=== PATIENT | male | born 1985 | race American Indian/Alaskan Native ===

== ENCOUNTER 2024-04-03 11:18 | Emergency (ER) | payer MEDICAID, OTHER, SELFPAY ==
--- NOTE | ~2024-04-03 | US_ITS ---
EXAMINATION: US ABDOMEN LIMITED CLINICAL INFORMATION: Right upper quadrant firmness per patient. COMPARISON: None available. TECHNIQUE: Real-time imaging of the right upper quadrant abdominal viscera. FINDINGS: PANCREAS: Normal. LIVER: Increased hepatic echogenicity suggesting hepatic steatosis. The liver is normal in size. The liver contour is normal. No focal hepatic lesion. There is no intrahepatic biliary duct dilatation seen. GALLBLADDER: Normal. The gallbladder is physiologically distended without evidence of stones, sludge, polyps, wall thickening or pericholecystic fluid. COMMON BILE DUCT: Normal in caliber measuring 0.4 cm in diameter. RIGHT KIDNEY: Right renal upper pole calculus measuring 9 mm. No hydronephrosis. No renal focal parenchymal lesions. The kidney measures 13.2 cm in maximum dimension. FREE FLUID: None. US/US abdomen limited IMPRESSION: 1. Increased hepatic echogenicity suggesting hepatic steatosis. 2. Right renal upper pole calculus measuring 9 mm without hydronephrosis.
[2024-04-03 11:22] VITALS: BP 142/91; PULSE 85; RESP 20; TEMP 37.2; O2SAT 98; BMI 33.2
--- NOTE | 2024-04-03 11:26 | ED_ITS ---
HPI - General Adult General Chief complaint: Abdominal Pain Stated complaint: Abd pain 2 days Time Seen by Provider: 04/03/24 13:00 Source: patient and RN notes reviewed Mode of arrival: ambulatory Limitations: no limitations History of Present Illness ED Provider: Sandra Trinh PA-C HPI narrative: This is a 38-year-old Stateless-speaking male, with a history of GERD, who presents emergency department with complaints of abdominal pain swelling. Patient states that about 4 days ago he developed left upper abdominal pain with abdominal distention which resolved after 1 day. He states that he no longer has the abdominal pain however noticed that he now has a lump in his umbilical region. Patient states that he has had no fevers, chills, abdominal pain, nausea, vomiting or diarrhea. He has been eating and drinking without difficulty. No changes in bowel habits. He is passing gas. Last bowel movement was this morning and normal. No urinary symptoms. No abdominal surgeries. No other complaints or concerns at this time. MD complaint: Abdominal lump Relieving factors: none Exacerbating factors: none Associated symptoms: denies other symptoms Treatments prior to arrival: none Related Data Allergies Allergy/AdvReac Type Severity Reaction Status Date / Time No Known Allergies Allergy Verified 04/03/24 11:27 Review of Systems 2 Review of Systems: Yes all other systems are reviewed and are negative Constitutional: Constitutional: Reports as per [facility] Past Medical History Attestation statement: The following information was validated with the patient. Social History Social History Advance Directives: No Do you have a plan to hurt others: No Plan Physical Exam ED Vital Signs: Vital Signs - 24 hr 04/03/24 11:22 04/03/24 14:27 Temperature 98.9 F 98.3 F Pulse Rate 85 79 Respiratory Rate 20 18 Blood Pressure 142/91 H 134/85 Pulse Oximetry 98 98 Oxygen Delivery Method Room Air Room Air BMI result Body Mass Index 33.2 Const General: cooperative, comfortable and no acute distress Orientation/consciousness: patient oriented x3 Limitations: no limitations HENMT Head: Yes normal to inspection, Yes normocephalic and Yes atraumatic Ears: hearing grossly normal bilaterally General nose exam: Normal external nose present Face and sinus: Yes normal facial exam Mouth: Normal oral and palatal mucosa present, oropharynx normal and moist mucous membranes Throat: Yes posterior oropharynx normal Eyes General: appearance normal, both eyes and all related structures Eyelids: Yes eyelids normal Conjunctivae: conjunctivae normal Sclerae: sclerae normal Pupils: Equal, round and reactive pupils present EOM: EOMs intact bilaterally Neck Neck: Yes normal visual inspection, Yes full ROM and Yes no lymphadenopathy Lymphatic: no lymphadenopathy noted Chest Chest palpation & inspection: normal inspection of the chest Resp Effort & Inspection: normal respiratory effort and able to speak in complete sentences Auscultation: clear to auscultation bilaterally, no crackles, no rales, no rhonchi and no wheezes Cardio Rate: regular rate Rhythm: regular rhythm Heart sounds: S1 normal heart sound present and S2 normal heart sound present GI Other: Abdomen is soft, nontender, nondistended. Just superior to the umbilicus, there is a piece size mobile, nontender indurated mass, subcutaneously, with no overlying skin changes, warmth, erythema. Unable to discern abdominal wall defect. Inspection: Yes normal to inspection Skin General skin exam: no rashes or lesions noted Trauma: no lacerations or abrasions Wounds: no wounds Neuro General: patient oriented x3 and moves all extremities Cranial nerves: Yes Equal, round and reactive pupils present Extrem General: Yes normal to inspection Right upper extremity: normal to inspection Left upper extremity: normal to inspection Right lower extremity: normal to inspection Left lower extremity: normal to inspection Course Course Course Narrative: This is a rapid medical exam performed by Annette Mae NP: Additional HPI, ROS, PE not included below will be deferred to primary provider. Patient is a 38-year-old male with history of GERD presenting with complaint of 2 days of upper abdominal pain and distention, bitter taste in mouth, states symptoms are not typical for his GERD. Complains of feeling a firm area to epigastric area. PE: abdomen soft and nontender, vital signs stable Plan: labs, U/S Reevaluation(s) Reevaluation #1: Ultrasound returns, revealing hepatic steatosis, as well as right renal upper pole calculus measuring 9 mm without hydro nephrosis. Discussed findings with patient. Given return precautions. Patient understands and agrees with plan. Patient stable for discharge. Time: 14:44 Medical Decision Making Medical Decision Making MDM Narrative: This is a 38-year-old male who presents emergency department with complaints of abdominal mass x 4 days. On arrival, blood pressure mildly elevated at 142/91. He is nontoxic-appearing and speaking full sentences. He is neurologically intact. Patient's abdomen is soft and nontender. He does have a small pea- sized mass noted just superior to his umbilicus. Differential diagnoses include hernia, mass, lipoma, abscess, incarcerated hernia-unlikely due to non tenderness and no overlying skin changes or warmth, GERD, gastritis, viral syndrome Plan: Labs, abdominal ultrasound Differential Diagnosis Differential Diagnoses: The differential diagnosis associated with the presentation includes See above Admission/Observation Consideration of admission/observation: Escalation of care including admission/observation considered Escalation of care including admission/observation considered however given workup today not warranted at this time. Lab Data MDM Lab Attestation statement: I reviewed the patient's lab results. No leukocytosis, stable H&H, electrolytes within normal limits. Normal liver enzymes, urine with trace leuk esterases, otherwise no other evidence of UTI. He has no urinary symptoms therefore will await urine culture. 04/03/24 11:52 04/03/24 11:52 Labs: Lab Results 04/03/24 04/03/24 Range/Units 11:52 13:20 WBC 6.5 (4.8-10.8) X10*3/uL RBC 4.95 (4.60-5.80) X10*6/uL Hgb 13.8 L (14.0-18.0) g/dl Hct 43.1 (42.0-52.0) % MCV 87.1 (80.0-98.0) fL MCH 27.9 (27.0-33.0) pg MCHC 32.0 (31.0-36.0) g/dl RDW 13.1 (11.0-16.0) % Plt Count 295 (160-400) X10*3/uL MPV 9.8 (9.4-12.4) fL Immature Gran % (Auto) 0.2 (0.0-0.4) % Neut % (Auto) 40.3 L (45-73) % Lymph % (Auto) 50.5 H (20-40) % [place] % (Auto) 7.7 (2-11) % Eos % (Auto) 0.8 (0-4) % Baso % (Auto) 0.5 (0-2) % Lymph # (Auto) 3.3 (1.2-4.9) X10*3/uL [place] # (Auto) 0.5 (0.1-1.2) X10*3/uL Eos # (Auto) 0.1 (0.0-0.4) X10*3/uL Baso # (Auto) 0.0 (0.0-0.2) X10*3/uL Abs Immat Gran (auto) 0.01 (0.00-0.03) X10*3/uL Absolute Neuts (auto) 2.6 (2.0-8.3) x10*3/uL Absolute Nucleated RBC 0.000 (0.0-0.012) X10*3/uL Nucleated RBC % (auto) 0.0 (0.0-0.2) /100WBC PT 12.0 (11.1-13.3) SEC INR 1.0 (0.9-1.1) Sodium 141 (135-145) mmol/L Potassium 4.1 (3.3-5.1) mmol/L Chloride 107 (96-108) mmol/L Carbon Dioxide 27 (22-29) mmol/L Anion Gap 11 L (12-20) BUN 13 (9-16) mg/dL Creatinine 0.85 (0.5-1.4) mg/dL Estim Creat Clear Calc 138.7 Estimated GFR > 60 Random Glucose 90 (60-115) mg/dL Calcium 10.0 (8.4-10.2) mg/dL Total Bilirubin 0.4 (0.0-1.0) mg/dL AST 22 (5-37) U/L ALT 34 (0-40) U/L Alkaline Phosphatase 67 (39-117) U/L Total Protein 8.0 (6.5-8.0) g/dL Albumin 4.8 (3.5-5.0) g/dL Urine Color Yellow Urine Appearance Clear Urine pH 7.5 (5.0-9.0) Ur Specific [place] 1.020 (1.005-1.025) Urine Protein Negative (Neg-Trace) mg/dL Urine Glucose (UA) Negative (Negative) mg/dL Urine Ketones Negative (Negative) mg/dL Urine Blood Negative (Negative) Urine Nitrite Negative (Negative) Ur Leukocyte Esterase Trace H (Negative) Urine RBC 0-2 (0-2) /HPF Urine WBC 0-5 (0-5) /HPF Ur Squamous Epith Cells 0-2 (0-2) /HPF Urine Bacteria None Seen (None Seen) Hyaline Casts 0-2 (0-2) /LPF Influenza Type A (PCR) NEGATIVE (Negative) Influenza Type B (PCR) NEGATIVE (Negative) RSV RNA Qual (PCR) NEGATIVE (Negative) SARS-CoV-2 RNA (RT-PCR) NEGATIVE (Negative) Radiology Impression Discussion of test interpretation with radiology: I have reviewed the radiologist's reading. Radiologist Impression: US/US abdomen limited IMPRESSION: 1. Increased hepatic echogenicity suggesting hepatic steatosis. 2. Right renal upper pole calculus measuring 9 mm without hydronephrosis. Discharge Plan Discharge Clinical Impression: Abdominal pain, Abdominal wall lump, Renal calculus, Hepatic steatosis Patient Disposition: Home, Self-Care Instructions: Kidney Stones (ED), Acute Abdominal Pain (ED), Ventral Hernia (ED) Additional Instructions: Your seen in the emergency department due to abdominal pain/lump. Your ultrasound shows a kidney stone on the right however this is within your kidney therefore no emergent intervention is required. You may follow-up with urologist as needed. You also have evidence of fatty liver. Please follow-up with your primary care physician regarding this visit. Your blood work was normal. Your urine does not appear to be infected. We will call you if your urine culture becomes positive. If any new or worsening symptoms occur including but not limited to severe abdominal pain, fevers, chest pain or shortness for breath, please return for re-evaluation. Referrals: [facility] [Provider Group] Center,[facility] [Physician] - Print Language: Stateless
[2024-04-03 11:56] LABS: MANUAL DIFF FLAG NO
[2024-04-03 12:01] LABS: Basophils Percent Auto 0.5 % (0-2); Eosinophils Absolute Auto 0.1 X10*3/uL (0.0-0.4); Eosinophils Percent Auto 0.8 % (0-4); Hematocrit 43.1 % (42.0-52.0); Hemoglobin 13.8 g/dl (14.0-18.0); Imm Gran Abs Auto 0.01 X10*3/uL (0.00-0.03); Imm Gran Pct Auto 0.2 % (0.0-0.4); Lymphocytes Absolute Auto 3.3 X10*3/uL (1.2-4.9); Lymphocytes Percent Auto 50.5 % (20-40); Mean Corpuscular Hemoglobin 27.9 pg (27.0-33.0); Mean Corpuscular Volume 87.1 fL (80.0-98.0); Mean Platelet Volume 9.8 fL (9.4-12.4); Monocytes Absolute Auto 0.5 X10*3/uL (0.1-1.2); Monocytes Percent Auto 7.7 % (2-11); Neutrophils Absolute Auto 2.6 x10*3/uL (2.0-8.3); Neutrophils Percent Auto 40.3 % (45-73); Platelet Count 295 X10*3/uL (160-400); Red Blood Count 4.95 X10*6/uL (4.60-5.80); Red Cell Distribution Width 13.1 % (11.0-16.0); White Blood Count 6.5 X10*3/uL (4.8-10.8)
[2024-04-03 12:03] LABS: Appearance Urine Clear; Color Urine Yellow; Glucose Urine UA Negative (Negative); Leukocyte Esterase Urine Trace (Negative); Nitrite Urine Negative (Negative); PH 7.5 (5.0-9.0); UMIC TRIGGER UACC YES; Urine Blood Negative (Negative); Urine Ketones Negative (Negative); Urine Protein Negative (Neg-Trace)
[2024-04-03 12:06] LABS: Bacteria Urine None Seen (None Seen); Hyaline Casts Urine 0-2 /LPF (0-2); RBC Urine 0-2 /HPF (0-2); Squamous Epithelial Cell Urine 0-2 /HPF (0-2); WBC Urine 0-5 /HPF (0-5)
[2024-04-03 12:11] LABS: Alanine Aminotransferase 34 U/L (0-40); Albumin Level 4.8 g/dL (3.5-5.0); Alkaline Phosphatase 67 U/L (39-117); Anion Gap 11 (12-20); Aspartate Amino Transferase 22 U/L (5-37); Bilirubin Total 0.4 mg/dL (0.0-1.0); Blood Urea Nitrogen 13 mg/dL (9-16); Carbon Dioxide 27 mmol/L (22-29); Chloride 107 mmol/L (96-108); Creatinine Clr Calc Pharmacy 138.7; Estimated Glomerular Filt Rate > 60; Glucose Random 90 mg/dL (60-115); Potassium 4.1 mmol/L (3.3-5.1); Sodium 141 mmol/L (135-145)
[2024-04-03 14:00] LABS: Influenza A PCR NEGATIVE (Negative); Influenza B PCR NEGATIVE (Negative); Resp Syncy Virus RNA Qual PCR NEGATIVE (Negative); SARS COV2 PCR INHOUSE NEGATIVE (Negative)
[2024-04-03 14:27] VITALS: BP 134/85; PULSE 79; RESP 18; TEMP 36.8; O2SAT 98
[2024-04-03 14:50] VITALS: BP 134/85; PULSE 79; RESP 18; TEMP 36.8; O2SAT 98
== END 2024-04-03 14:51 | disposition home or self-care (01) ==
PROVIDERS: Physician Assistant Medical; Registered Nurse Emergency; Emergency Provider Emergency Medicine
DX: N20.0 Calculus of kidney (principal); K76.0 Fatty (change of) liver, not elsewhere classified; R10.9 Unspecified abdominal pain; Z79.899 Other long term (current) drug therapy; Z03.818 Encounter for observation for suspected exposure to other biological agents ruled out
CPT/HCPCS: 0241U; 36415; 76705; 80053; 81001; 81003; 85025; 85610; 99283; 99284

== ENCOUNTER 2024-05-15 12:23 | Emergency (ER) | payer OTHER, SELFPAY ==
--- NOTE | 2024-05-15 12:28 | ED_ITS ---
HPI - Skin/Abscess/Foreign Bdy General Chief complaint: Skin/Abscess/Foreign Body Stated complaint: Fish hook stuck in side Time Seen by Provider: 05/15/24 12:58 Source: patient and hourly sign language interpreter Mode of arrival: ambulatory Limitations: language barrier History of Present Illness ED Provider: yvonne HPI narrative: Patient is a 38-year-old [place]an-speaking male presenting to the emergency department with complaint of fish hook stuck in his left upper back. He states that 1 of his children was attempting to cast when the fish hook became accidentally lodged in his back. States he would have removed it himself but he was unable to reach the area. Unsure last tetanus vaccine, states he had multiple vaccines when he came here from the [place] in June of 2023 but is unsure if Tdap was included. complaint: foreign body Onset (ago): minute(s) Tetanus up to date: unsure Location: back Associated symptoms: denies other symptoms Treatments prior to arrival: none Related Data Allergies Allergy/AdvReac Type Severity Reaction Status Date / Time No Known Allergies Allergy Verified 05/15/24 12:33 Review of Systems 2 Review of Systems: As per HPI. Yes all other systems are reviewed and are negative Constitutional: Constitutional: Reports as per HPI [facility] Social History Social History Advance Directives: No Advance Directives Information Provided: Yes Physical Exam 2 Vital Signs: Vital Signs: Last Vital Signs Temp 98.6 F 05/15/24 12:32 Pulse 85 05/15/24 12:32 Resp 16 05/15/24 12:32 BP 160/100 H 05/15/24 12:32 Pulse Ox 99 05/15/24 12:32 O2 Del Method Room Air 05/15/24 12:32 BMI result Body Mass Index 38.2 Vital signs have been reviewed and appear to be correct. Blood pressure elevated. Heart rate normal. Respiratory rate normal. Temperature normal. Oxygen saturation normal. Const: General: cooperative, healthy appearing and no acute distress O rientation/consciousness: oriented to person, oriented to place, oriented to time and patient oriented x3 Limitations: no limitations HEENT: Head: Yes normocephalic and Yes atraumatic Ears: external ears normal General nose exam: Normal external nose present Face and sinus: Yes face symmetric Mouth: oropharynx normal and moist mucous membranes Throat: Yes uvula midline Eyes: Pupils: Equal, round and reactive pupils present Neck: Neck: Yes normal visual inspection and Yes supple Resp: Effort & Inspection: normal respiratory effort and able to speak in complete sentences Auscultation: clear to auscultation bilaterally Cardio: Rate: regular rate Rhythm: regular rhythm Heart sounds: S1 normal heart sound present and S2 normal heart sound present GI: Palpation (GI): Soft to palpation and nontender Auscultation: n ormoactive bowel sounds : General: Yes no CVA tenderness Back/Spine/Pelvis: Back: no CVA tenderness Skin: General skin exam: elasticity normal and turgor normal Trauma: p uncture (fish hook left upper back, superficial) Full body images: 1. fish hook embedded superficially left upper back Neuro: General: oriented to person, oriented to place, oriented to time, patient oriented x3, moves all extremities, no focal motor deficits and CN's II- XI intact bilaterally Cranial nerves: Yes Equal, round and reactive pupils present Cognition (Neuro): normal cognition Extrem: General: Yes full ROM, Yes no pedal edema and Yes no calf tenderness Psych: Mental Status: mental status grossly normal Affect: normal affect Thought process: Normal thought process present Course Course Course Narrative: This is a Rapid Medical Examination (RME) performed by Nile Gamboa PA-C in triage. Full HPI, ROS, assessment and treatment plan per primary provider in the Main ED. 38 yo [place] speaking male here for eval of fish hook stuck in skin sustained [employer] [place] reports tetanus was updated in june 2023. + single pronged hook embedded into skin of lateral/ posterior chest. Plan: FB removal. Medications Administered Discontinued Medications Generic Name Dose Route Start Last Admin Trade Name Freq PRN Reason Stop Dose Admin Diphtheria/Tetanus/Acell Pertussis 0.5 ml 05/15/24 13:09 05/15/24 13:14 Diphth,Pertus(Acell),Tet Adult 0.5 Ml Syringe IM 05/15/24 13:10 0.5 ml .ONCE ONE Administration Lidocaine HCl 5 ml 05/15/24 13:05 05/15/24 13:14 Lidocaine Hcl 1 % Mpf 5 Ml Vial INFILTRATI 05/15/24 13:06 5 ml ONCE ONE Administration Medical Decision Making Medical Decision Making [facility] Narrative: Patient is a 38-year-old [place]an-speaking male presenting to the emergency department with complaint of fish hook stuck in his left upper back. On exam patient is awake, A+Ox3, BP elevated, VS otherwsie WNL, afebrile, normal neurological exam without focal deficits, physical exam findings as above. Given reported symptoms and physical exam findings, initial differential includes foreign body left upper back. Tdap updated. Hook removed as per procedure note without complications, patient tolerated well. Advised patient to assess area daily for signs of infection, return if these occur. Follow up with PCP. Patient verbalized understanding of and agreement with plan. In- person deaf interpreter used at bedside. Differential Diagnosis Differential Diagnoses: The differential diagnosis associated with the presentation includes as per [facility] External Record Review External record reviewed: Inpatient record, Office record and Outpatient record Prescription Management I considered prescription management with: Other Procedures Foreign Body Removal Time Out Performed: yes Site: left Description of foreign body: fish hook Sedation/Analgesia: other (lidocaine) Technique: manual removal Confirmed by:: direct visualization Complications: none Post-procedure exam: awake, alert, normal BP, normal HR and normal O2 sat Neurovascular: normal capillary fill and distal light touch sensation intact Discharge Plan Discharge Clinical Impression: Fish hook in back Patient Disposition: Home, Self-Care Instructions: Puncture Wound (DC) Additional Instructions: You were evaluated in the emergency department today for a fish hook stuck in your back. The fishhook was removed in the emergency department. Your tetanus vaccine was updated at today's visit. Please assess the area daily for any new redness, swelling or thick yellow drainage and return if this occurs. Follow-up with your primary care provider. Print Language: B[place]
[2024-05-15 12:32] VITALS: BP 160/100; PULSE 85; RESP 16; TEMP 37; O2SAT 99; BMI 38.2
[2024-05-15] MEDS: Diphth,Pertus(ACell),Tet Adult 0.5 ML SYRINGE IM (13:14)
[2024-05-15] MEDS: Lidocaine HCl 1 % MPF 5 ML VIAL INFILTRATI (13:14)
--- NOTE | 2024-05-15 13:17 | PC.NURSE ---
pt medicated per order
[2024-05-15 13:32] VITALS: BP 126/79; PULSE 76; RESP 16; TEMP 36.6; O2SAT 95
== END 2024-05-15 13:32 | disposition home or self-care (01) ==
PROVIDERS: Emergency Provider Emergency Medicine
DX: S21.242A Puncture wound with foreign body of left back wall of thorax without penetration into thoracic cavity, initial encounter (principal); W45.8XXA Other foreign body or object entering through skin, initial encounter; Y93.89 Activity, other specified; Y92.9 Unspecified place or not applicable; Y99.9 Unspecified external cause status; Z23 Encounter for immunization
CPT/HCPCS: 90471; 90715; 99282; 99284

== ENCOUNTER 2024-05-29 10:36 | Outpatient (AMB) | payer OTHER, SELFPAY ==
--- NOTE | 2024-05-29 11:20 | MHC.OFFVIS ---
Intake Visit Reasons: kidney stone Intake Note: New Patient presents for initial visit for Kidney Stone Urology Medications: none Blood Thinner: none Insurance Appraiser Required: Yes Insurance Appraiser Name: [id number] Accompanied by: children Allergies No Known Allergies Allergy (Verified 05/29/24 13:22) Medication List - Last Reconciled 05/29/24 by NIKKI Snyder No Known Home Meds HPI Comments Details: Caden is a very pleasant 38-year-old Beninese-speaking male patient who was accompanied by his 4 children at today's office visit. He presents to the office today as a new patient for nephrolithiasis. In discussion with the patient today reports having seeked emergency room care approximately 2 months ago for abdominal pain and swelling he had been experiencing at which time a abdominal ultrasound was ordered and performed and patient was noted to have nephrolithiasis therefore urology referral was made for further assessment evaluation. Right kidney noted to have a nonobstructing 9 mm right upper pole calculus. No hydronephrosis or renal lesions noted. When asked he reports a previous history of nephrolithiasis however never requiring surgical intervention. He currently denies any bothersome urinary issues or concerns. He reports pain he had been experiencing has since subsided. Discussed further intervention to include surveillance monitoring verses ESWL. He denies urinary urgency, urinary frequency, incontinence, nocturia, hematuria, dysuria, foul smelling urine, changes to urinary stream, flank pain, fever, and or chills. He is happy with her current voiding parameters. In office urinalysis results reviewed with the patient today. Discussed at length potential causes of nephrolithiasis as well as further workup to include labs as well as 24 hour urine collection. He otherwise offers no other issues or concerns at this time. Review of Systems Const All systems reviewed & are unremarkable except as noted in HPI and below Physical Exam Const General: cooperative, healthy appearing, comfortable, no acute distress, well developed, alert and awake Nutritional Appearance: overweight Orientation/consciousness: patient oriented x3 Limitations: no limitations HEENT Head: Yes normal to inspection, Yes normocephalic and Yes atraumatic Ears: hearing grossly normal bilaterally Eyes General: appearance normal, both eyes and all related structures Neck Neck: Yes normal visual inspection and Yes trachea midline Chest Chest palpation & inspection: normal inspection of the chest Resp Effort & Inspection: normal respiratory effort and able to speak in complete sentences Cardio Rate: regular rate GI Inspection: Yes normal to inspection General: Yes no CVA tenderness Back/Spine/Pelvis Back: no CVA tenderness Skin General skin exam: no rashes or lesions noted Neuro General: patient oriented x3 Extrem General: Yes normal to inspection Psych Appearance: grossly normal and well kempt Mental Status: mental status grossly normal Speech and movement: Normal speech and movement present and Clear speech present Affect: normal affect Attitude: cooperative Thought process: Normal thought process present Thought content: Normal thought content present Insight: Fair insight present (Psych) Judgement: Fair judgement present (Psych) Results AMB Urinalysis, Automated UA Leukoctes 0 Gwen/uL Last Edit by INTERNET BUSINESS TRADER on 05/29/24 11:35 UA Nitrite Last Edit by INTERNET BUSINESS TRADER on 05/29/24 11:35 UA Urobilinogen 0.2 mg/dL Last Edit by INTERNET BUSINESS TRADER on 05/29/24 11:35 UA Protein 0 mg/dL Last Edit by INTERNET BUSINESS TRADER on 05/29/24 11:35 UA pH 7.0 Last Edit by INTERNET BUSINESS TRADER on 05/29/24 11:35 UA Blood 0 Flynn/uL Last Edit by INTERNET BUSINESS TRADER on 05/29/24 11:35 UA Specific Sidney 1.015 Last Edit by INTERNET BUSINESS TRADER on 05/29/24 11:35 UA Ketone Last Edit by INTERNET BUSINESS TRADER on 05/29/24 11:35 UA Bilirubin 0 mg/dL Last Edit by INTERNET BUSINESS TRADER on 05/29/24 11:35 UA Glucose 0 mg/dL Last Edit by INTERNET BUSINESS TRADER on 05/29/24 11:35 Results Reviewed Results Reviewed: Laboratory Last Values Urine pH (Auto) 7.0 05/29/24 11:34 Specific Sidney (Auto) 1.015 05/29/24 11:34 Urine Protein (Auto) 0 mg/dL 05/29/24 11:34 Glucose (UA)(Auto) 0 mg/dL 05/29/24 11:34 Urine Blood (Auto) 0 Flynn/uL 05/29/24 11:34 Urine Bilirubin (Auto) 0 mg/dL 05/29/24 11:34 Urine Urobilinogen (Auto) 0.2 mg/dL 05/29/24 11:34 Leukocyte Esterase (Auto) 0 Gwen/uL 05/29/24 11:34 Date of Service: 04/03/24 EXAMINATION: US ABDOMEN LIMITED CLINICAL INFORMATION: Right upper quadrant firmness per patient. COMPARISON: None available. TECHNIQUE: Real-time imaging of the right upper quadrant abdominal viscera. FINDINGS: PANCREAS: Normal. LIVER: Increased hepatic echogenicity suggesting hepatic steatosis. The liver is normal in size. The liver contour is normal. No focal hepatic lesion. There is no intrahepatic biliary duct dilatation seen. GALLBLADDER: Normal. The gallbladder is physiologically distended without evidence of stones, sludge, polyps, wall thickening or pericholecystic fluid. COMMON BILE DUCT: Normal in caliber measuring 0.4 cm in diameter. RIGHT KIDNEY: Right renal upper pole calculus measuring 9 mm. No hydronephrosis. No renal focal parenchymal lesions. The kidney measures 13.2 cm in maximum dimension. FREE FLUID: None. IMPRESSION: 1. Increased hepatic echogenicity suggesting hepatic steatosis. 2. Right renal upper pole calculus measuring 9 mm without hydronephrosis. Assessment & Plan Assessment & Plan (1) Renal calculus: Code(s): N20.0 - Calculus of kidney Category: Medical Plan In office urinalysis results reviewed with the patient today; as noted above. Discussed further treatment options of nephrolithiasis to include surveillance monitoring verses ESWL; risks and benefits of these interventions were discussed at length Discussed adding 1 oz of lemon juice to water daily. Discussed, educated, and stressed the importance of hydration in relation to nephrolithiasis as well as overall health and well-being. Patient currently denies any bothersome urinary issues or concerns. Patient would like to continue with surveillance monitoring at this time. Will obtain KUB in 6 months. Follow-up in 6 months with imaging to be completed prior; or sooner with any issues, concerns, and or questions. Orders: Orders AMB Urinalysis Automated Today Z13.9 - Encounter for screening, unspecified XR KUB 6 Months N20.0 - Calculus of kidney Patient Instructions: The patient had an opportunity to ask questions regarding the treatment plan. All questions were answered. Physical exam, labs, and imaging were discussed and reviewed in detail. As well as risks, benefits, and discussion of treatment choices. No major barriers to understanding were identified. The patient expressed understanding and agreement with the above treatment plan. The patient was made aware they should contact our office by phone for worsening of their current condition, the appearance of new symptoms, or with any questions or concerns. Compliance is encouraged with any medications and follow up testing that is ordered. It is a privilege to be allowed the opportunity to participate in? your urological care.? Again, if you have any questions or concerns If you have any questions or concerns please do not hesitate to contact me. The office is [phone]. This note is constructed using voice recognition software. While every effort has been made to ensure accuracy clinical medical transcriptionist errors may have been included. Yours sincerely, NIKKI Snyder Coding Level of Care Code New Pt Level 4 (93642) Diagnoses Renal calculus N20.0 Time Spent (min) 35
== END 2024-05-29 11:55 | disposition home or self-care (01) ==
PROVIDERS: Visit Provider Nurse Practitioner Family
DX: Z13.9 Encounter for screening, unspecified (principal); N20.0 Calculus of kidney
CPT/HCPCS: 99204

== ENCOUNTER → 2024-05-29 10:36 | Outpatient (BNVA) | payer OTHER, SELFPAY | PROVIDERS: Visit Provider Nurse Practitioner Family | DX: N20.0 Calculus of kidney (principal) | CPT/HCPCS: 81003; 99202 ==

== ENCOUNTER 2025-03-01 08:47 | Outpatient (REF) | payer OTHER, SELFPAY ==
--- OUTSIDE RECORDS SUMMARY | 2025-03-01 09:07 | XMS_ITS | Clinical Summary ---
Author Organization [facility] Address [address] [place] [address] Care Team Providers Care Cone Examiner Name Role Phone Poncho Fabian MD Primary Care Prov ider Allergies No known active allergies Medications No known medications Active Problems Problem Noted Date Diagnosed Date Encounter for medical examination to establish c are 02/27/2025 Assessment & Plan (02/27/2025 10:56 AM EDT): Last pcp visit >1 ER: 05/2024 due to skin trauma Hospitalization: - Pmhx: kidney stones, left knee pain Pshx: - All:- Meds: b complex, tylenol PRN Class 2 obesity due to exces s calories without serious comorbidity with body mass index (BMI) of 36.0 to 36.9 in adult 02/27/2025 Encounters Date Type Department Care Team Description 02/27/2025 10:45 AM EDT Office Visit [facility] [address] [place] [address] Poncho Fabian MD Screening-pulmonary TB (Primary Dx); Class 2 obesity due to excess calories without serious comorbidity with body mass index (BMI) of 36.0 to 36.9 in adult; Encounter for medical examination to establish care 02/27/2025 Travel 02/19/2025 Patient Outreach [facility] [address] [place] [address] Brian Obregon MD Pre-visit Planning (Pre visit planning LVM ) from Last 3 Months Immunizations Immunization Administration Dates Next Due Hep B, adult 06/02/2023 MMR 06/02/2023 Varicella 06/02/2023 Family History Medical History Relation Name Comments No Known Problems Father No Known Problems Mother Cancer Neg Hx Relation Name Status Comments Father Mother Social History Tobacco Use Types Packs/Day Years Used Date Smoking Tobacco: Never Smokeless Tobacco: Never Tobacco Cessation:Counseling Given: Not Answered Alcohol Use Standard Drinks/Week Comments Yes 0 (1 standard drink = 0.6 oz pur e alcohol) beer socially Depression Answer Date Recorded Patient Health Questionnaire-9 Score 0 02/27/2025 Patient Health Questionnaire-9 Score 0 02/27/2025 Last PHQ-9: Questionnaire Data Not on file 0 02/27/2025 Housing Stability Answer Date Recorded What is your housing situation today? I have lewis moreno 02/27/[address] you li ve. Do you have problems with any of the following? None of the above 02/27/2025 Food Insecurity Answer Date Recorded Within the past 12 months, y ou worried that your food would run out before you got money to buy more: Never True 02/27/2025 Within the past 12 months,th e food you bought just didn't last and you didn't have enough money to get more: Never True Transportation Answer Date Recorded In the past 12 months, has l ack of transportation kept you from medical appts, meetings, work or from getting things needed for daily living? No 02/27/2025 Utilities Answer Date Recorded In the past 12 months, has t he electric, gas, oil or water company threatened to shut off services in your home? No 02/27/2025 Depression Answer Date Recorded Patient Health Questionnaire-2 Score 0 02/27/2025 Internet Access Answer Date Recorded Internet Access Q1 Yes 02/27/2025 Internet Access Q2 Not on file 02/27/2025 Sex and Gender Information Value Date Recorded Sex Assigned at Male 07/25/2024 12:45 PM EDT Legal Sex Male 12:44 PM EDT Gender Identity Male 07/25/2024 12:45 PM EDT Sexual Orientation Straight 02/25/2025 3: 39 PM EDT Last Filed Vital Signs Vital Sign Reading Time Taken Comments Blood Pressure 133/80 02/27/2025 10:35 AM EDT Pulse 88 02/27/2025 10:35 AM EDT Temperature 37.1 ??C (98.7 ??F) 02/27/2025 10:35 AM E DT Respiratory Rate 20 02/27/2025 10:35 AM EDT Oxygen Saturation - - Inhaled Oxygen Concentration - - Weight 113 kg (250 lb) 02/27/2025 10:35 AM EDT Height 175.3 cm (5' 9 ) 02/27/2025 10:35 AM EDT Body Mass Index 36.92 02/27/2025 10:35 AM EDT Plan of Treatment Health Maintenance Due Date Last Done Comments HIV Screening 1985 Lipid Panel 1985 Disability Screening 1985 Family Planning (PISQ) 2000 Hepatitis C Screening 2003 DTaP/Tdap/Td Vaccines (1 - Tdap) 2004 Hepatitis B Vaccines (2 of 3 - 19+ 3-dose series) 06/30/2023 06/02/2023 COVID-19 Vaccine (1 - 2023-2 5 season) 2024 Influenza Vaccine (#1) 2024 Alcohol/Substance Use Screening 02/27/2026 02/27/2025 Depression Screening 02/27/2026 02/27/2025, 02/27/2025 SDOH Screening 02/27/2026 02/27/2025 Tobacco Screening 02/27/2026 02/27/2025 Zoster Vaccines (1 of 2) 2035 RSV Patients and Patients Aged 60 years or older (1 - 1-dose 75+ series) 2060 HIB Vaccines Aged Out No longer eligi ble based on patient's age to complete this topic HPV Vaccines Aged Out No longer eligi ble based on patient's age to complete this topic Hepatitis A Vaccines Aged Out No long er eligible based on patient's age to complete this topic IPV Vaccines Aged Out No longer eligi ble based on patient's age to complete this topic Meningococcal B Vaccine Aged Out No l onger eligible based on patient's age to complete this topic Meningococcal Vaccine Aged Out No festus annelise eligible based on patient's age to complete this topic Pneumococcal Vaccine: Pediatrics (0 to 5 Years) and At-Risk Patients (6 to 49) Years) Aged Out No longer eligible b ased on patient's age to complete this topic RSV under 20 months Aged Out No longe r eligible based on patient's age to complete this topic Rotavirus Vaccines Aged Out No longer eligible based on patient's age to complete this topic [place] [address] [address] [place] [address] LIMITED HSN FULL Care Teams Cone Examiner Relationship Specialty Start Date End Date Poncho Fabian MD [address] [place] [id number] PCP - General Internal Medicine 02/27/25
[2025-03-01 14:20] LABS: MANUAL DIFF FLAG NO
[2025-03-01 14:27] LABS: Basophils Percent Auto 0.8 % (0-2); Eosinophils Absolute Auto 0.1 X10*3/uL (0.0-0.4); Hemoglobin 13.9 g/dl (14.0-18.0); Imm Gran Abs Auto 0.01 X10*3/uL (0.00-0.03); Imm Gran Pct Auto 0.2 % (0.0-0.4); Lymphocytes Absolute Auto 2.5 X10*3/uL (1.2-4.9); Mean Corpuscular HGB Conc 31.6 g/dl (31.0-36.0); Mean Corpuscular Hemoglobin 27.5 pg (27.0-33.0); Mean Corpuscular Volume 87.1 fL (80.0-98.0); Mean Platelet Volume 10.8 fL (9.4-12.4); Monocytes Absolute Auto 0.3 X10*3/uL (0.1-1.2); Monocytes Percent Auto 6.4 % (2-11); Neutrophils Absolute Auto 2.1 x10*3/uL (2.0-8.3); Neutrophils Percent Auto 42.6 % (45-73); Platelet Count 244 X10*3/uL (160-400); Red Blood Count 5.05 X10*6/uL (4.60-5.80); Red Cell Distribution Width 13.6 % (11.0-16.0)
[2025-03-01 14:35] LABS: Estimated Average Glucose 114 mg/dL; Hemoglobin A1c % 5.6 % (<6.0); Total Hemoglobin (HGBA1C) 3688.2683 umol/L
[2025-03-01 15:00] LABS: Alanine Aminotransferase 57 U/L (0-40); Albumin Level 4.8 g/dL (3.5-5.0); Alkaline Phosphatase 62 U/L (39-117); Anion Gap 11 (12-20); Aspartate Amino Transferase 38 U/L (5-37); Bilirubin Total 0.5 mg/dL (0.0-1.0); Blood Urea Nitrogen 13 mg/dL (9-16); Calcium 9.7 mg/dL (8.4-10.2); Carbon Dioxide 27 mmol/L (22-29); Chloride 109 mmol/L (96-108); Cholesterol 197 mg/dL (<200); Estimated Glomerular Filt Rate > 60; Glucose Random 84 mg/dL (60-115); HDL Cholesterol 38 mg/dL (>40); LDL Cholesterol Calculated 131 mg/dL (<100); Potassium 3.9 mmol/L (3.3-5.1); Sodium 143 mmol/L (135-145); Total Protein 7.4 g/dL (6.5-8.0); Triglycerides 142 mg/dL (<150)
[2025-03-04 08:24] LABS: HIV AB/AG Nonreactive (Nonreactive); HIV Num 1 0.05 S/CO (0.00-0.99); ~HepC Num1 0.06 S/CO (0.00-0.79); ~Hepatitis C Antibody Nonreactive (Nonreactive)
== END 2025-03-01 08:48 | disposition home or self-care (01) ==
LOC: HO.CHCLDS 08:47
PROVIDERS: Visit Provider Internal Medicine
DX: Z00.00 Encounter for general adult medical examination without abnormal findings (principal); E66.812 Obesity, class 2; E66.09 Other obesity due to excess calories; Z68.36 Body mass index [BMI] 36.0-36.9, adult
CPT/HCPCS: 36415; 80053; 80061; 83036; 84443; 85025; 86803; 87389

== ENCOUNTER 2025-05-21 07:42 | Outpatient (REF) | payer OTHER, SELFPAY ==
--- NOTE | ~2025-05-21 | US_ITS ---
CLINICAL HISTORY: US LIVER, TRANSAMINITIS US abdomen complete Comparison: US/SR - US ABDOMEN LIMITED - 04/03/24 12:21 EDT Findings: The visualized pancreas head is normal. The visualized aorta and inferior vena cava are normal caliber. The liver is enlarged, right lobe length is 18.1 cm. Moderately increased echogenicity of the liver parenchyma. No discrete lesion is visualized in the imaged liver. No intrahepatic bile duct dilatation. The common duct is 2 mm in diameter. The gallbladder is normal. Negative sonographic Kauffman sign. The main portal vein is patent with antegrade flow. The right kidney is normal, 12.1 cm in length. The left kidney is normal, 10.0 cm in length. The spleen is normal, 11.3 cm in length. No free fluid in the abdomen. Impression: Hepatomegaly with steatosis. This document has been electronically signed by: Naya Esqueda MD on 05/21/2025 11:23:39
--- NOTE | ~2025-05-21 | XR_ITS ---
EXAMINATION: XR ABDOMEN 1 VIEW (KUB) HISTORY: N20.0 - Calculus of kidney COMPARISON: There are no prior studies available for comparison. FINDINGS: Two supine views of the chest are submitted. The bowel gas pattern is unremarkable, without evidence of mechanical obstruction. A 2 mm calcification is seen overlying the right renal shadow. There are phleboliths in the pelvis. There are no abnormal soft tissue masses. The bones are intact. XR/XR KUB IMPRESSION: 2 mm calcification overlying the upper pole of the right renal shadow. Electronically signed by: Daniel Bautista MD 05/21/2025 08:45 AM EDT
--- OUTSIDE RECORDS SUMMARY | 2025-05-21 07:46 | XMS_ITS | Clinical Summary ---
Author Organization [employer] Address [address] [facility] [address] [place] [address] Care Team Providers Care Motor Analyst Name Role Phone Poncho Fabian MD Primary [...] Encounters Date Type Department Care Team Description 03/22/2025 Results Follow-Up [facility] [address] [place] [address] Poncho Fabian MD CBC auto differential, Comprehensive Metabolic Panel, Hemoglobin A1c, Additional followed-up results: 4 02/27/2025 10:45 AM EDT Office Visit [facility] [address] [place] [address] Poncho Fabian MD Screening-pulmonary TB (Primary Dx); Class 2 obesity due to excess calories without serious comorbidity with body mass index (BMI) of 36.0 to 36.9 in adult; Encounter for medical examination to establish care 02/27/2025 Travel 02/19/2025 Patient Outreach [facility] [address], [place] [phone] Brian Obregon MD Pre-visit Planning (Pre visit [...] 88 02/27/2025 10:35 AM EDT Temperature 37.1 C (98.7 F) 02/27/2025 10:35 AM EDT Respiratory Rate 20 02/27/2025 10:35 AM EDT Oxygen Saturation - - Inhaled Oxygen Concentration - - Weight 113 kg (250 lb) 02/27/2025 10:35 AM EDT Height 175.3 cm (5' 9 ) 02/27/2025 10:35 AM EDT Body Mass Index 36.92 02/27/2025 10:35 AM EDT Plan of Treatment Health Maintenance Due Date Last Done Comments Disability Screening 1985 Family Planning (PISQ) 2000 HPV Vaccines (1 - Male 3-dos e series) 2000 DTaP/Tdap/Td Vaccines (1 - Tdap) 2004 Hepatitis B Vaccines (2 of 3 - 19+ 3-dose series) 06/30/2023 06/02/2023 COVID-19 Vaccine (1 - 2023-2 5 season) 2024 Influenza Vaccine (#1) 2025 Alcohol/Substance Use Screening 02/27/2026 02/27/2025 Depression Screening 02/27/2026 02/27/2025, 02/27/2025 SDOH Screening 02/27/2026 02/27/2025 Tobacco Screening 02/27/2026 02/27/2025 Lipid Panel 03/01/2030 03/01/2025 Zoster Vaccines (1 of 2) 2035 RSV Patients and Patients Aged 60 years or older (1 - 1-dose 75+ series) 2060 HIV Screening Completed 03/01/2025 Hepatitis C Screening Completed 03/01/2025 HIB Vaccines Aged Out No longer eligi [...] Years) and At-Risk Patients (6 to 49) Years Aged Out No longer eligible b ased on patient's age to complete this topic RSV under 20 months Aged Out No longe r eligible based on patient's age to complete this topic Rotavirus Vaccines Aged Out No longer eligible based on patient's age to complete this topic Procedures Procedure Name Priority Date/Time Associated Diagnosis Comments HEPATITIS C AB W/REFL TO HCV RNA, QN, PCR Routine 03/01/2025 12:00 AM EDT Encounter for medical examination to establish care HIV 1/2 ANTIGEN/ANTIBODY, FOURTH GENERATION W/RFL Routine 03/01/2025 12:00 AM EDT Encounter for medical examination to establish care TSH W/REFLEX TO FT4 Routine 03/01/2025 1 2:00 AM EDT Class 2 obesity due to excess calories without serious comorbidity with body mass index (BMI) of 36.0 to 36.9 in adult LIPID PANEL, STANDARD Routine 03/01/2025 12:00 AM EDT Class 2 obesity due to excess calories without serious comorbidity with body mass index (BMI) of 36.0 to 36.9 in adult HEMOGLOBIN A1C Routine 03/01/2025 12:00 AM EDT Class 2 obesity due to excess calories without serious comorbidity with body mass index (BMI) of 36.0 to 36.9 in adult COMPREHENSIVE METABOLIC PANEL Routine 03/01/2025 12:00 AM EDT Class 2 obesity due to excess calories without serious comorbidity with body mass index (BMI) of 36.0 to 36.9 in adult CBC WITH AUTO DIFFERENTIAL Routine 03/01/2025 12:00 AM EDT Class 2 obesity due to excess calories without serious comorbidity with body mass index (BMI) of 36.0 to 36.9 in adult from Last 3 Months Results * TSH W/Reflex to FT4 (03/01/2025 12:00 AM EDT) TSH reflex Free T4 1.20 0.32 - 4.0 uIU/mL [facility] Blood Venous blood specimen / Unknown 03/01/2025 03/01/2025 us Poncho Tolliver MD LAB BLOOD ORDERABL ES Final Result [facility] [address] [place], [place] [phone] * (ABNORMAL) CBC auto differential (03/01/2025 12:00 AM EDT) White Blood Count 5.0 4.8 - 10.8 X10*3/uL [facility] Red Blood Count 5.05 4.60 - 5.80 X10*6/uL [facility] Hemoglobin 13.9(L) 14.0 - 18.0 g/dl [facility] Hematocrit 44.0 42.0 - 52.0 % [facility] Mean Corpuscular Volume 87.1 80.0 - 98.0 fL [facility] Mean Corpuscular Hemoglobin 27.5 27.0 - 33.0 pg [facility] Mean Corpuscular HGB Conc 31.6 31.0 - 36.0 g/dl [facility] Red Cell Distribution Width 13.6 11.0 - 16.0 % [facility] Platelet Count 244 160 - 400 X10*3/uL [facility] Mean Platelet Volume 10.8 9.4 - 12.4 fL [facility] Neutrophils Percent Auto 42.6(L) 45 - 73 % [facility] Imm Gran Pct Auto 0.2 0.0 - 0.4 % [facility] Lymphocytes Percent Auto 49.0(H) 20 - 40 % [facility] Monocytes Percent Auto 6.4 2 - 11 % [facility] Eosinophils Percent Auto 1.0 0 - 4 % [facility] Basophils Percent Auto 0.8 0 - 2 % [facility] NRBC Pct Auto 0.0 0.0 - 0.2 /100WBC [facility] Neutrophils Absolute Auto 2.1 2.0 - 8.3 x10*3/uL [facility] Imm Gran Abs Auto 0.01 0.00 - 0.03 X10*3/uL [facility] Lymphocytes Absolute Auto 2.5 1.2 - 4.9 X10*3/uL [facility] Monocytes Absolute Auto 0.3 0.1 - 1.2 X10*3/uL [facility] Eosinophils Absolute Auto 0.1 0.0 - 0.4 X10*3/uL [facility] Basophils Absolute Auto 0.0 0.0 - 0.2 X10*3/uL [facility] NRBC Abs Auto 0.000 0.0 - 0.012 X10*3/uL [facility] Blood Venous blood specimen / Unknown 03/01/2025 03/01/2025 Poncho Tolliver MD LAB BLOOD ORDERABL ES Final Result Performing Organization Address City/Va Hospital/ZIP Co de Phone Number [facility] [address] [place] [phone] * Hepatitis C Antibody with Reflex to HCV, RNA, Quantitative, Real-Time PCR (03/01/2025 12:00 AM EDT) Pathologist [facility] Hepatitis C Antibody Nonreactive Nonreactive [facility] Comment:Antibodies to HCV no t detected; does not exclude early acuteHCV infection. Blood Venous blood specimen / Unknown 03/01/2025 03/01/2025 Poncho Tolliver MD LAB BLOOD ORDERABL ES Final Result Performing Organization Address [facility]/Va Hospital/ZIP Co de Phone Number [facility] [address] [place] [phone] * HIV-1/2 Antigen and Antibodies, Fourth Generation, with Reflexes (03/01/2025 12:00 AM EDT) HIV AB/AG Nonreactive Nonreactive [facility] Comment:HIV-1 p24 Ag and/or HIV-1/HIV-2 Ab not detected.A test result that is nonreactive does not exclude thepossibility of exposure to or infection with HIV-1 and/orHIV-2. Nonreactive results in this assay for individualswith prior exposure to HIV-1 and/or HIV-2 may be due toantigen and antibody levels that are below the limit ofdetection of this assay.The WritePath HIV Ag/Ab Combo assay result andsupplemental assay results should be interpreted inconjunction with the patient's clinical presentation,history and other laboratory results. If the results areinconsistent with clinical evidence, additional testing issuggested to confirm the result. Blood Venous blood specimen / Unknown 03/01/2025 03/01/2025 Poncho Tolliver MD LAB BLOOD ORDERABL ES Final Result Performing Organization Address City/Va Hospital/[facility] Co de Phone Number [facility] [address] [place] [phone] * Hemoglobin A1c (03/01/2025 12:00 AM EDT) Hemoglobin A1c 5.6 <6.0 % [facility] Comment:Hemoglobin A1C Refer ence Range Adults: 4.8 - 6.0 % Non diabetic: < 6.0 % Goal: < 7.0 %Additional Action Suggested: > 8.0 %Note: Hemoglobin A1c results are invalid for patients with abnormal amounts of HbF. Blood transfusions may impact the HbA1c concentration in the patient sample. Estimated Average Glucose 114 mg/dL [facility] Comment:eAG = Estimated ave rage glucose which is %A1C expressed asaverage glucose, using the formula of the U3D-KxofxrcObefibw Glucose study (ADAG), Diabetes Care, Vol.31,#8,May. 2007 Blood Venous blood specimen / Unknown 03/01/2025 03/01/2025 Poncho Tolliver MD LAB BLOOD ORDERABL ES Final Result Performing Organization Address [facility] Co de Phone Number [facility] [address] [place] [address] [phone] * (ABNORMAL) Lipid Panel, Standard (03/01/2025 12:00 AM EDT) Triglycerides 142 <150 mg/dL [facility] Comment:Desirable Triglyceri de: less than 150 mg/dLBorderline High Triglyceride 150-199 mg/dLHigh Triglyceride: 200-499 mg/dLVery High Triglyceride: greater than or equal to 5OO mg/dL Cholesterol 197 <200 mg/dL [facility] Comment:Desirable Cholestero l: less than 200 mg/dLBorderline High Cholesterol: 200-239 mg/dLHigh Cholesterol: greater than 239 mg/dL LDL Cholesterol Calculated 131(H) <100 mg/dL [facility] Comment:Desirable LDL: less than 100 mg/dLNear Optimal/Above Optimal LDL: 110- 129 mg/dLBorderline High LDL: 130-159 mg/dLHigh LDL: 160-189 mg/dLVery High LDL: greater than or equal to 190 mg/dL HDL Cholesterol 38(L) >40 mg/dL [facility] Comment:Desirable HDL: great er than 40 mg/dL Note: This HDL assay may give artificially low results in patients with liver disease. Blood Venous blood specimen / Unknown 03/01/2025 03/01/2025 us Poncho Tolliver MD LAB BLOOD ORDERABL ES Final Result Performing Organization Address [facility]/ZIP Co de Phone Number [facility] [address] [place] [phone] * (ABNORMAL) Comprehensive Metabolic Panel (03/01/2025 12:00 AM EDT) Sodium 143 135 - 145 mmol/L [facility] Potassium 3.9 3.3 - 5.1 mmol/L [facility] Chloride 109(H) 96 - 108 mmol/L [facility] Carbon Dioxide 27 22 - 29 mmol/L [facility] Anion Gap 11(L) 12 - 20 [facility] Urea Nitrogen (BUN) 13 9 - 16 mg/dL [facility] Creatinine, Serum 0.86 0.5 - 1.4 mg/dL [facility] Estimated Glomerular Filt Rate >60 [facility] Comment:Chronic Kidney Disea se: Estimated GFR < 60 mL/min/1.06p6Utlnjs Kidney Disease: Estimated GFR < 15 mL/min/1.73m2 Glucose 84 60 - 115 mg/dL [facility] Calcium 9.7 8.4 - 10.2 mg/dL [facility] Bilirubin, Total 0.5 0.0 - 1.0 mg/dL [facility] Aspartate Amino Transferase 38(H) 5 - 37 U/L [facility] Alanine Aminotransferase 57(H) 0 - 40 U/L [facility] Total Protein 7.4 6.5 - 8.0 g/dL [facility] Albumin Level 4.8 3.5 - 5.0 g/dL [facility] Alkaline Phosphatase 62 39 - 117 U/L [facility] Blood Venous blood specimen / Unknown 03/01/2025 03/01/2025 us Poncho Tolliver MD LAB BLOOD ORDERABL ES Final Result [facility] [address] [place] [address] [phone] from Last 3 Months Insurance [employer] F[employer] Care Teams Motor Analyst Relationship Specialty Start Date End Date Poncho Fabian MD [address] [place] [phone] PCP - General Internal Medicine 02/27/25
== END 2025-05-21 07:43 | disposition home or self-care (01) ==
LOC: HO.US 07:42
PROVIDERS: Absent Provider Nurse Practitioner Family; PCP Internal Medicine; Visit Provider Internal Medicine
DX: R74.01 Elevation of levels of liver transaminase levels (principal); N20.0 Calculus of kidney
CPT/HCPCS: 74018; 76700

== ENCOUNTER → 2025-05-21 08:24 | Outpatient (BNV) | payer OTHER, SELFPAY | PROVIDERS: Absent Provider Nurse Practitioner Family; PCP Internal Medicine; Visit Provider Radiology Diagnostic Radiology | DX: R94.5 Abnormal results of liver function studies (principal); K76.0 Fatty (change of) liver, not elsewhere classified; R16.0 Hepatomegaly, not elsewhere classified; N20.0 Calculus of kidney | CPT/HCPCS: 74018; 76700 ==

== ENCOUNTER 2025-06-05 11:28 | Outpatient (AMB) | payer OTHER, SELFPAY ==
--- NOTE | 2025-06-05 11:29 | A.OFFVIS_ITS ---
Intake Visit Reasons: KUB follow up Intake Note: Patient is present for KUB F/U Urology Medication:NONE Antibiotic Allergy:NONE Blood Thinner:NONE Hose Inspector And Patcher Required: Yes Hose Inspector And Patcher Services: Hose Inspector And Patcher Present Hose Inspector And Patcher Name: Fanny [id number] Allergies No Known Allergies Allergy (Verified 06/05/25 11:46) Medication List - Last Reconciled 06/05/25 by NIKKI Snyder No Known Home Meds HPI Comments Details: Caden is a very pleasant 39-year-old Nigerien-speaking male patient of Dr. Tristan Tolliver. He is being followed up on today via telehealth for his history of nephrolithiasis. In discussion with the patient today reports to be doing and feeling well. He denies having had any bothersome urinary issues or concerns since his last office visit here. Recent KUB and renal imaging results reviewed with the patient today. 06/03 bilateral kidneys are normal. KUB 06/03 2 mm calcification overlying the upper pole of the right renal shadow. He discusses his longstanding history of nephrolithiasis however never requiring surgical intervention. He currently denies any bothersome urinary issues or concerns. He denies urinary urgency, urinary frequency, incontinence, nocturia, hematuria, dysuria, foul smelling urine, changes to urinary stream, flank pain, fever, and or chills. He is happy with her current voiding parameters. We discussed at length potential causes of nephrolithiasis as well as further workup to include labs as well as 24 hour urine collection. He otherwise offers no other issues or concerns at this time. Review of Systems Const All systems reviewed & are unremarkable except as noted in HPI and below Physical Exam Const General: cooperative Limitations: language barrier Resp Effort & Inspection: able to speak in complete sentences Psych Attitude: cooperative Thought content: Normal thought content present Insight: Fair insight present (Psych) Judgement: Fair judgement present (Psych) Telehealth Telehealth Telehealth Platform: [facility] Location of provider rendering services: practice address Location of patient: address on file Patient Identification confirmed using: Name, : Yes Telehealth method: voice only Patient verbally consented to treatment: Yes Patient verbally consented to billing insurance company: Yes Patient informed of any privacy concerns related to visit: Yes Minutes spent on Phone/Video with Pt.: 15 Results Reviewed Results Reviewed: Date of Service: 05/21/25 Procedure(s): US abdomen complete Findings: The visualized pancreas head is normal. The visualized aorta and inferior vena cava are normal caliber. The liver is enlarged, right lobe length is 18.1 cm. Moderately increased echogenicity of the liver parenchyma. No discrete lesion is visualized in the imaged liver. No intrahepatic bile duct dilatation. The common duct is 2 mm in diameter. The gallbladder is normal. Negative sonographic Kauffman sign. The main portal vein is patent with antegrade flow. The right kidney is normal, 12.1 cm in length. The left kidney is normal, 10.0 cm in length. The spleen is normal, 11.3 cm in length. No free fluid in the abdomen. Impression: Hepatomegaly with steatosis. Date of Service: 05/21/25 Procedure(s): XR KUB FINDINGS: Two supine views of the chest are submitted. The bowel gas pattern is unremarkable, without evidence of mechanical obstruction. A 2 mm calcification is seen overlying the right renal shadow. There are phleboliths in the pelvis. There are no abnormal soft tissue masses. The bones are intact. IMPRESSION: 2 mm calcification overlying the upper pole of the right renal shadow. Assessment & Plan Assessment & Plan (1) Renal calculus: Code(s): N20.0 - Calculus of kidney Category: Medical Plan Recent KUB results reviewed with the patient today; as noted above. He currently denies any bothersome urinary issues. He reports be happy with current voiding parameters. We discussed importance of adequate hydration relation to nephrolithiasis as well as overall health and well-being. All questions were answered. Discussed adding 1 oz of lemon juice to water daily. Will obtain renal ultrasound in 1 year. Follow-up in 1 year with imaging to be completed prior; or sooner with any issues, concerns, and or questions. Orders: Orders US renal BI 1 Year N20.0 - Calculus of kidney Patient Instructions: The patient had an opportunity to ask questions regarding the treatment plan. All questions were answered. Physical exam, labs, and imaging were discussed and reviewed in detail. As well as risks, benefits, and discussion of treatment choices. No major barriers to understanding were identified. The patient expressed understanding and agreement with the above treatment plan. The patient was made aware they should contact our office by phone for worsening of their current condition, the appearance of new symptoms, or with any questions or concerns. Compliance is encouraged with any medications and follow up testing that is ordered. It is a privilege to be allowed the opportunity to participate in? your urological care.? Again, if you have any questions or concerns If you have any questions or concerns please do not hesitate to contact me. The office is [phone]. This note is constructed using voice recognition software. While every effort has been made to ensure accuracy pallet rectifier errors may have been included. Yours sincerely, NIKKI Snyder Coding Level of Care Code Tele Est Pt Level 3 (00390) Diagnoses Renal calculus N20.0
--- OUTSIDE RECORDS SUMMARY | 2025-06-05 12:29 | XMS_ITS | Clinical Summary ---
Author Organization [facility] [employer] Address [address] [facility] [address] [place] [address] Care Team Providers Care Production Control Coordinating Clerk Name Role Phone Poncho Fabian MD Primary [...] Encounters Date Type Department Care Team Description 05/21/2025 Orders Only [facility] External Provider, [facility] 03/22/2025 Results Follow-Up [facility] [address] [place] [address] Poncho Fabian MD CBC auto differential, Comprehensive Metabolic Panel, Hemoglobin A1c, Additional followed-up results: 4 from Last 3 Months Immunizations Immunization Administration [...] Procedure Name Priority Date/Time Associated Diagnosis Comments US ABDOMEN COMPLETE Routine 05/21/2025 1 1:23 AM EDT XR KUB AND UPRIGHT 2 VIEWS Routine 05/21/2025 8:30 AM EDT HEPATITIS C AB W/REFL TO HCV RNA, QN, PCR Routine 03/01/2025 12:00 AM EDT Encounter for medical examination to establish care HIV 1/2 ANTIGEN/ANTIBODY, FOURTH GENERATION W/RFL Routine 03/01/2025 12:00 AM EDT Encounter for medical examination to establish care LIPID PANEL, STANDARD Routine 03/01/2025 12:00 AM EDT Class 2 obesity due to excess calories without serious comorbidity with body mass index (BMI) of 36.0 to 36.9 in adult from Last 3 Months or Most Recently Relevant to Health Maintenance Results * US Abdomen Complete (05/21/2025 11:23 AM EDT) Anatomical Region Laterality Modality Abdomen Ultrasound 05/21/2025 11:2 3 AM EDT Narrative 05/21/2025 11:25 AM EDT [place] [address] Ultrasound Report Signed Patient: Caden Bernardo MR#: [id number] : 1985 Acct:[id number] Age/Sex: 39 / M ADM Date: 05/21/25 Loc: HO.US Attending Dr: Poncho Tolliver MD Ordering Physician: Poncho Fabian MD Date of Service: 05/21/25 Procedure(s): US abdomen complete Accession Number(s): [id number] cc: Poncho Fabian MD CLINICAL HISTORY: US LIVER, TRANSAMINITIS US abdomen complete Comparison: US/SR - US ABDOMEN LIMITED - 04/03/24 12:21 EDT Findings: The visualized pancreas head is normal. The visualized aorta and inferior vena cava are normal caliber. The liver is enlarged, right lobe length is 18.1 cm. Moderately increased echogenicity of the liver parenchyma. No discrete lesion is visualized in the imaged liver. No intrahepatic bile duct dilatation. The common duct is 2 mm in diameter. The gallbladder is normal. Negative sonographic Kauffman sign. The main portal vein is patent with antegrade flow. The right kidney is normal, 12.1 cm in length. The left kidney is normal, 10.0 cm in length. The spleen is normal, 11.3 cm in length. No free fluid in the abdomen. Impression: Hepatomegaly with steatosis. This document has been electronically signed by: Naya Esqueda MD on 05/21/2025 11:23:39 Dictated By: Naya Esqueda MD Signed By: <Electronically signed by Naya Esqueda MD in OV> 05/21/25 1124 DD/ 1123 TD/TT: 05/21/25 1123 Cognos Analyst: Procedure Note Donotuseinterpreter, Image - 05/21/2025 [place] [address] Ultrasound Report Signed Patient: Joana Bernardo#: [id number] : 1985Acct:[id number] Age/Sex: 39 / MADM Date: 05/21/25 Loc: HO.US Attending Dr: Poncho Tolliver MD Ordering Physician: Poncho Fabian MD Date of Service: 05/21/25 Procedure(s): US abdomen complete Accession Number(s): [id number] cc: Poncho Fabian MD CLINICAL HISTORY: US LIVER, TRANSAMINITIS US abdomen complete Comparison: US/SR - US ABDOMEN LIMITED - 04/03/24 12:21 EDT Findings: The visualized pancreas head is normal. The visualized aorta and inferior vena cava are normal caliber. The liver is enlarged, right lobe length is 18.1 cm. Moderately increased echogenicity of the liver parenchyma. No discrete lesion is visualized in the imaged liver. No intrahepatic bile duct dilatation. The common duct is 2 mm in diameter. The gallbladder is normal. Negative sonographic Kauffman sign. The main portal vein is patent with antegrade flow. The right kidney is normal, 12.1 cm in length. The left kidney is normal, 10.0 cm in length. The spleen is normal, 11.3 cm in length. No free fluid in the abdomen. Impression: Hepatomegaly with steatosis. This document has been electronically signed by: Naya Esqueda MD on 05/21/2025 11:23:39 Dictated By: Naya Esqueda MD Signed By: <Electronically signed by Naya Esqueda MD in OV> 05/21/25 1124 DD/ 1123 TD/TT: 05/21/25 112 Cognos Analyst: us Poncho Tolliver MD IMG US PROCEDURES Edited Result - Final * XR KUB and Upright 2 Views (05/21/2025 8:30 AM EDT) Anatomical Region Laterality Modality Radiographic Bisi ging 05/21/2025 8:30 AM EDT Narrative 05/21/2025 8:48 AM EDT [place] [address] XRay Report Signed Patient: Caden Bernardo MR#: [id number] : 1985 Acct:[id number] Age/Sex: 39 / M ADM Date: 05/21/25 Loc: HO.US Attending Dr: Poncho Tolliver MD Ordering Physician: Gisele Lay Date of Service: 05/21/25 Procedure(s): XR KUB Accession Number(s): [id number] cc: Poncho Fabian MD; Gisele Lay EXAMINATION: XR ABDOMEN 1 VIEW (KUB) HISTORY: N20.0 - Calculus of kidney COMPARISON: There are no prior studies available for comparison. FINDINGS: Two supine views of the chest are submitted. The bowel gas pattern is unremarkable, without evidence of mechanical obstruction. A 2 mm calcification is seen overlying the right renal shadow. There are phleboliths in the pelvis. There are no abnormal soft tissue masses. The bones are intact. XR/XR KUB IMPRESSION: 2 mm calcification overlying the upper pole of the right renal shadow. Electronically signed by: Daniel Bautista MD 05/21/2025 08:45 AM EDT RP Dictated By: Daniel Bautista MD Signed By: <Electronically signed by Daniel Bautista MD in OV> 05/21/25 0845 DD/ 9 TD/TT: 05/21/2540 Cognos Analyst: Procedure Note Donotuseinterpreter, Image - 05/21/[address] [address] XRay Report Signed Patient: Caden BernardoMR#: [id number] : 1985Acct:[id number] Age/Sex: 39 / MADM Date: 05/21/25 Loc: HO.US Attending Dr: Poncho Tolliver MD Ordering Physician: Gisele Lay Date of Service: 05/21/25 Procedure(s): XR KUB Accession Number(s): [id number] cc: Poncho Fabian MD; Gisele Lay EXAMINATION: XR ABDOMEN 1 VIEW (KUB) HISTORY: N20.0 - Calculus of kidney COMPARISON: There are no prior studies available for comparison. FINDINGS: Two supine views of the chest are submitted. The bowel gas pattern is unremarkable, without evidence of mechanical obstruction. A 2 mm calcification is seen overlying the right renal shadow. There are phleboliths in the pelvis. There are no abnormal soft tissue masses. The bones are intact. XR/XR KUB IMPRESSION: 2 mm calcification overlying the upper pole of the right renal shadow. Electronically signed by: Daniel Bautista MD 05/21/2025 08:45 AM EDT Dictated By: Daniel Bautista MD Signed By: <Electronically signed by Daniel Bautista MD in OV> 05/21/2545 DD/ 9 TD/TT: 05/21/25839 Cognos Analyst: [facility] External Provider IMG XR PROCEDURES Edited Result - Final * Hepatitis C Antibody with Reflex to HCV, RNA, Quantitative, Real-Time PCR (03/01/2025 12:00 AM EDT) Hepatitis C Antibody Nonreactive Nonreactive [facility] Comment:Antibodies to HCV no t detected; does not exclude early acuteHCV infection. Blood Venous blood specimen / Unknown 03/01/2025 03/01/2025 Poncho Tolliver MD LAB BLOOD ORDERABL ES Final Result Performing Organization Address [facility] [address]/ZIP Co de Phone Number [facility] [address] [place] [phone] * HIV-1/2 Antigen and Antibodies, Fourth Generation, with Reflexes (03/01/2025 12:00 AM EDT) HIV AB/AG Nonreactive Nonreactive [facility] Comment:HIV-1 p24 Ag and/or HIV-1/HIV-2 Ab not detected.A test result that is nonreactive does not exclude thepossibility of exposure to or infection with HIV-1 and/orHIV-2. Nonreactive results in this assay for individualswith prior exposure to HIV-1 and/or HIV-2 may be due toantigen and antibody levels that are below the limit ofdetection of this assay.The [employer] HIV Ag/Ab Combo assay result andsupplemental assay results should be interpreted inconjunction with the patient's clinical presentation,history and other laboratory results. If the results areinconsistent with clinical evidence, additional testing issuggested to confirm the result. Blood Venous blood specimen / Unknown 03/01/2025 03/01/2025 us Poncho Tolliver MD LAB BLOOD ORDERABL ES Final Result Performing Organization Address City/[facility] [address]/ZIP Co de Phone Number [facility] [address] [place] [phone] * (ABNORMAL) Lipid Panel, Standard (03/01/2025 12:00 AM EDT) Triglycerides 142 <150 mg/dL [facility] Comment:Desirable Triglyceri de: less than 150 mg/dLBorderline High Triglyceride 150-199 mg/dLHigh Triglyceride: 200-499 mg/dLVery High Triglyceride: greater than or equal to 5OO mg/dL Cholesterol 197 <200 mg/dL [facility] Comment:Desirable Cholestero l: less than 200 mg/dLBorderline High Cholesterol: 200-239 mg/dLHigh Cholesterol: greater than 239 mg/dL LDL Cholesterol Calculated 131(H) <100 mg/dL [facility] Comment:Desirable LDL: less than 100 mg/dLNear Optimal/Above Optimal LDL: 110- 129 mg/dLBorderline High LDL: 130-159 mg/dLHigh LDL: 160-189 mg/dLVery High LDL: greater than or equal to 190 mg/dL HDL Cholesterol 38(L) >40 mg/dL [facility] Comment:Desirable HDL: great er than 40 mg/dL Note: This HDL assay may give artificially low results in patients with liver disease. Blood Venous blood specimen / Unknown 03/01/2025 03/01/2025 Poncho Tolliver MD LAB BLOOD ORDERABL ES Final Result [facility] [address] [place] [phone] from Last 3 Months or Most Recently Relevant to Health Maintenance Insurance [employer] [facility] FULL Member Subscriber Plan / Payer (Ef fective 2025-Present) Name:Caden Bernardo Relation to Subscriber:Self Name:Caden Bernardo Payer ID:Not on file Group ID:Not on file Type:Not on file Address: [address] [place] [phone] Care Teams Production Control Coordinating Clerk Relationship Specialty Start Date End Date Poncho Fabian MD [address] [place] [phone] PCP - General Internal Medicine 02/27/25
== END 2025-06-05 12:18 | disposition home or self-care (01) ==
LOC: HO.HUSH 11:28
PROVIDERS: PCP Internal Medicine; Visit Provider Nurse Practitioner Family
DX: N20.0 Calculus of kidney (principal)
CPT/HCPCS: 99213

== ENCOUNTER 2025-09-02 10:01 | Emergency (ER) | payer OTHER, SELFPAY ==
[2025-09-02 10:06] VITALS: BP 134/62; PULSE 78; RESP 20; TEMP 36.2; O2SAT 96; BMI 37.6
--- NOTE | 2025-09-02 10:09 | ED_ITS ---
HPI - Wound/Laceration General Chief Complaint: Skin/Abscess/Foreign Body Stated Complaint: stepped on nail Time Seen by Provider: 09/02/25 10:14 Source: patient and RN notes reviewed Mode of arrival: ambulatory Limitations: no limitations History of Present Illness ED Provider: Sandra Conrad PA-C HPI narrative: This is a 40-year-old male who presents emergency department with concerns of right foot pain after stepping on a nail last night. Patient reports that he accidentally stepped on a nail with his left foot wearing sneakers. This ultimately penetrated his left foot. He states that he has had mild pain in his area. He has been soaking his foot with some relief. No fevers or chills. Last tetanus shot was last year. No other complaints or concerns at this time. Onset (ago): day(s) Place: home Patient tetanus UTD: Yes Context: accidental Associated symptoms: pain Related Data Previous Rx's ?Medication ?Instructions ?Recorded ciprofloxacin HCl 500 mg tablet 500 mg PO Q12H 7 days #14 tabs 09/02/25 Allergies Allergy/AdvReac Type Severity Reaction Status Date / Time No Known Allergies Allergy Verified 09/02/25 10:11 Review of Systems Review of Systems: Constitutional : No Fever, No Chills ENT/Mouth : No sore throat, No Rhinorrhea Eyes: No Eye Pain, No Swelling, No Redness Cardiovascular : No Chest Pain, No SOB Respiratory : No Cough, No Sputum Gastrointestinal : No Nausea, No Vomiting, No Diarrhea, No abdominal Pain Genitourinary : No Dysuria, No Hematuria Musculoskeletal : No joint pain, No Myalgias, No Joint Swelling Skin : No Skin Lesions Neuro : No Weakness, No Numbness, No Headache All other systems reviewed and are negative Yes all other systems are reviewed and are negative Constitutional: Constitutional: Reports as per HPI [facility] Past Medical History Attestation statement: The following information was validated with the patient. Social History Social History Advance Directives: No Advance Directives Information Provided: Yes Physical Exam Exam: Exam: General: Awake, alert, and oriented X3. No acute distress. HEENT: Normal inspection CVS: Normal heart rate and rhythm. Pulses normal. Respiratory: No respiratory distress Skin: Warm, dry, no rashes noted to exposed skin. Normal skin color. Normal skin turgor. Extremities: Left foot, plantar aspect, overlying the distal metatarsal bone, there is a superficial abrasion noted, consistent with a puncture wound. No foreign body appreciated. No surrounding erythema or warmth. No bony tenderness. Neuro: Oriented X 3. No motor deficit. No sensory deficit. Vital Signs: Vital Signs: Last Vital Signs Temp 97.1 F 09/02/25 10:27 Pulse 78 09/02/25 10:27 Resp 20 09/02/25 10:27 BP 134/62 09/02/25 10:27 Pulse Ox 96 09/02/25 10:27 O2 Del Method Room Air 09/02/25 10:27 BMI result Body Mass Index 37.6 Medical Decision Making Medical Decision Making MDM Narrative: This is a 18-gtho-jkh-male who presents to the ER with a complaints of puncture wound to left foot. Nail penetrated through sneaker, requiring Pseudomonas coverage therefore starting on ciprofloxacin. Encouraged to finish the entire course. He already had his tdap last year. No evidence of cellulitis on examination. Given precautions on tendon rupture side effect from fluoroquinolones, agreed that he will not perform any heavy lifting while he is taking this medication. Given strict return precautions. He understands and agrees with plan. Patient stable for discharge. Differential Diagnosis Differential Diagnoses: The differential diagnosis associated with the presentation includes Puncture wound, cellulitis, fracture - unlikely, abrasion, foreign body-unlikely Discharge Plan Discharge Clinical Impression: Puncture wound of foot Patient Disposition: Home, Self-Care Instructions: Puncture Wound (ED), Puncture Wound in the Foot (ED) Additional Instructions: Please keep wound clean and dry. Please take entire course of antibiotics. Your TDAP was updated last year therefore we do not need to update your tdap today. If any new or worsening symptoms occur including but not limited to increased redness, swelling, fevers, increased pain, please seek emergent care. Prescriptions: New ciprofloxacin HCl 500 mg tablet 500 mg PO Q12H 7 Days Qty: 14 0RF Interventions: ED Discharge Assessment Last Done: 09/02/25 10:27 Discharge Date/Time: 09/02/25 10:27 Print Language: Puerto Rican
[2025-09-02 10:27] VITALS: BP 134/62; PULSE 78; RESP 20; TEMP 36.2; O2SAT 96
--- OUTSIDE RECORDS SUMMARY | 2025-09-02 12:35 | XMS_ITS | Clinical Summary ---
Author Organization [employer] Address [address] [facility] [address] [place] [address] Care Team Providers Care Him Manager Name Role Phone Poncho Fabian MD Primary [...] of 36.0 to 36.9 in adult 02/27/2025 Immunizations Immunization Administration Dates Next Due Hep [...] 02/27/2025 10:35 AM EDT Plan of Treatment Upcoming Encounters Date Type Department Care Team (Late st Contact Info) Description 09/27/2025 9:45 AM EST Office Visit [facility] [address] [place] [address] Poncho Fabian MD [address] [place] [address] Health Maintenance Due Date Last Done Comments Disability Screening 1985 Family Planning (PISQ) 2000 HPV Vaccines (1 - Male 3-dos e series) 2000 Hepatitis B Vaccines (2 of 3 - 19+ 3-dose series) 06/30/2023 06/02/2023 COVID-19 Vaccine (1 - 2024-2 6 season) 2025 Influenza Vaccine (#1) 2025 Alcohol/Substance Use Screening 02/27/2026 02/27/2025 Depression Screening 02/27/2026 02/27/2025, 02/27/2025 SDOH Screening 02/27/2026 02/27/2025 Tobacco Screening 02/27/2026 02/27/2025 Lipid Panel 03/01/2030 03/01/2025 DTaP/Tdap/Td Vaccines (2 - T d or Tdap) 05/15/2034 05/15/2024 Zoster Vaccines (1 of 2) 2035 RSV [...] Recently Relevant to Health Maintenance Results * Hepatitis C Antibody with Reflex to HCV, RNA, Quantitative, Real-Time PCR (03/01/2025 12:00 AM EDT) Hepatitis C Antibody Nonreactive Nonreactive [facility] Comment:Antibodies to HCV no t detected; does not exclude early acuteHCV infection. Blood Venous blood specimen / Unknown 03/01/2025 03/01/2025 Poncho Tolliver MD LAB BLOOD ORDERABL ES Final Result [facility] [address] [place] [phone] * HIV-1/2 Antigen and Antibodies, Fourth Generation, with Reflexes (03/01/2025 12:00 AM EDT) HIV AB/AG Nonreactive Nonreactive [facility] Comment:HIV-1 p24 Ag and/or HIV-1/HIV-2 Ab not detected.A test result that is nonreactive does not exclude thepossibility of exposure to or infection with HIV-1 and/orHIV-2. Nonreactive results in this assay for individualswith prior exposure to HIV-1 and/or HIV-2 may be due toantigen and antibody levels that are below the limit ofdetection of this assay.The [employer] HIV Ag/Ab Combo assay result andsupplemental assay results should be interpreted inconjunction with the patient's clinical presentation,history and other laboratory results. If the results areinconsistent with clinical evidence, additional testing issuggested to confirm the result. Blood Venous blood specimen / Unknown 03/01/2025 03/01/2025 Poncho Tolliver MD LAB BLOOD ORDERABL ES Final Result Performing Organization Address [facility] Co de Phone Number [facility] [address] [place] [phone] * (ABNORMAL) Lipid Panel, Standard (03/01/2025 12:00 AM EDT) Triglycerides 142 <150 mg/dL [facility] Comment:Desirable Triglyceri de: less than 150 mg/dLBorderline High Triglyceride 150-199 mg/dLHigh Triglyceride: 200-499 mg/dLVery High Triglyceride: greater than or equal to 5OO mg/dL Cholesterol 197 <200 mg/dL [facility] Comment:Desirable Cholestero l: less than 200 mg/dLBorderline High Cholesterol: 200-239 mg/dLHigh Cholesterol: greater than 239 mg/dL LDL Cholesterol Calculated 131(H) <100 mg/dL [facility] Comment:Desirable LDL: less than 100 mg/dLNear Optimal/Above Optimal LDL: 110- 129 mg/dLBorderline High LDL: 130-159 mg/dLHigh LDL: 160-189 mg/dLVery High LDL: greater than or equal to 190 mg/dL HDL Cholesterol 38(L) >40 mg/dL [facility] Comment:Desirable HDL: great er than 40 mg/dL Note: This HDL assay may give artificially low results in patients with liver disease. Blood Venous blood specimen / Unknown 03/01/2025 03/01/2025 Poncho Tolliver MD LAB BLOOD ORDERABL ES Final Result Performing Organization Address City/[facility]/ZIP Co de Phone Number [facility] [address] [place] [phone] from Last 3 Months or Most Recently Relevant to Health Maintenance Insurance [facility] [employer] FULL Care Teams Him Manager Relationship Specialty Start Date End Date Poncho Fabian MD [address] [place] [phone] PCP - General Internal Medicine 02/27/25
== END 2025-09-02 10:27 | disposition home or self-care (01) ==
PROVIDERS: Emergency Provider Emergency Medicine; PCP Internal Medicine
DX: S91.332A Puncture wound without foreign body, left foot, initial encounter (principal); W45.0XXA Nail entering through skin, initial encounter; Y93.9 Activity, unspecified; Y92.9 Unspecified place or not applicable
CPT/HCPCS: 99282; 99283